=== PATIENT | female | born 1995 | race Caucasian/White ===

== ENCOUNTER 2016-03-31 15:01 | Emergency (ER) | payer BC ==
[2016-03-31] MEDS ORDERED: Amoxicillin/Clavulanate TAB* 875 MG PO ONE (17:30)
--- NOTE | 2016-03-31 17:33 | UC ---
Throat Pain/Nasal Sergei HPI - HPI Summary HPI Summary: FACIAL PRESSURE AND NASAL CONGESTION FOR ONE WEEK. FEVER AND COUGH. - History of Current Complaint Chief Complaint: UC Stated Complaint: SORE THROAT,COUGH Time Seen by Provider: 03/31/16 16:48 Hx Obtained From: Patient Hx Last Menstrual Period: 03/17/16 Onset/Duration: Gradual Onset, Lasting Weeks, Still Present Severity: Moderate Cough: Nonproductive Associated Signs & Symptoms: Positive: Sinus Discomfort, Nasal Discharge, Fever - Epiglottits Risk Factors Epiglottis Risk Factors: Negative - Allergies/Home Medications Allergies/Adverse Reactions: Allergies Allergy/AdvReac Type Severity Reaction Status Date / Time No Known Allergies Allergy Verified 03/31/16 16:56 PMH/Surg Hx/FS Hx/Imm Hx Previously Healthy: Yes - Surgical History Surgical History: None - Family History Known Family History: Negative: Respiratory Disease - Social History Occupation: Student Lives: Alone Alcohol Use: None Substance Use Type: None Smoking Status (MU): Never Smoked Tobacco Review of Systems Constitutional: Fever, Chills, Fatigue Skin: Negative Eyes: Negative ENT: Sore Throat Respiratory: Negative Cardiovascular: Negative Gastrointestinal: Negative Genitourinary: Negative Motor: Negative Neurovascular: Negative Musculoskeletal: Negative Neurological: Negative Psychological: Negative All Other Systems Reviewed And Are Negative: Yes Physical Exam Triage Information Reviewed: Yes Appearance: No Pain Distress, Well-Nourished, Ill-Appearing - MILD Vital Signs: Initial Vital Signs Temp 101.7 F 03/31/16 16:58 Pulse 117 03/31/16 16:58 Resp 16 03/31/16 16:58 BP 111/67 03/31/16 16:58 Pulse Ox 99 03/31/16 16:58 Vital Signs Reviewed: Yes Eye Exam: Normal ENT Exam: Normal ENT: Positive: Normal ENT inspection, Hearing grossly normal, TMs normal Dental Exam: Normal Neck exam: Normal Neck: Positive: Supple, Nontender Respiratory Exam: Normal Respiratory: Positive: Chest non-tender, Lungs clear, Normal breath sounds, No respiratory distress Cardiovascular Exam: Normal Cardiovascular: Positive: RRR, No Murmur Abdominal Exam: Normal Abdomen Description: Positive: Nontender, No Organomegaly Musculoskeletal Exam: Normal Neurological Exam: Normal Psychological Exam: Normal Psychological: Positive: Normal Response To Family Skin Exam: Normal Throat Pain/Nasal Course/Dx - Differential Dx/Diagnosis Differential Diagnosis/HQI/PQRI: Pharyngitis, Sinusitis, Tonsillitis, URI Provider Diagnoses: SINUSITIS Discharge - Discharge Plan Condition: Stable Disposition: HOME Prescriptions: Amoxicillin/Clavulanate TAB* [Augmentin TAB 875*] 875 mg PO BID #20 tab Patient Education Materials: Sinusitis (ED) Forms: *School Release
== END 2016-03-31 17:48 | disposition home or self-care (01) ==
LOC: UCCORT 15:01
DX: J32.9 Chronic sinusitis, unspecified (principal)
CPT/HCPCS: 99202; A9270-GY; G0463

== ENCOUNTER 2017-06-24 16:48 | Emergency (ER) | payer BC ==
[2017-06-24 17:37] VITALS: BP 118/76
--- NOTE | 2017-06-24 17:48 | UC ---
Throat Pain/Nasal Sergei HPI - HPI Summary HPI Summary: 21 yo female with cough x 1 week now with sore throat no documented fever she has had chill no runny nose no n/v/d had flu a few mos ago no CP or SOB - History of Current Complaint Chief Complaint: UCRespiratory Stated Complaint: SORE THROAT, COUGH Time Seen by Provider: 06/24/17 17:30 Hx Obtained From: Patient Hx Last Menstrual Period: 06/13/17 Onset/Duration: Gradual Onset, Lasting Days Severity: Moderate Pain Intensity: 5 Pain Scale Used: 0-10 Numeric Cough: Productive - Allergies/Home Medications Allergies/Adverse Reactions: Allergies Allergy/AdvReac Type Severity Reaction Status Date / Time No Known Allergies Allergy Verified 06/24/17 17:34 Home Medications: Home Medications Bcp 1 tab DAILY 06/24/17 [History Confirmed 06/24/17] PMH/Surg Hx/FS Hx/Imm Hx Previously Healthy: Yes - Surgical History Surgical History: None - Family History Known Family History: Positive: Hypertension Negative: Respiratory Disease - Social History Alcohol Use: None Substance Use Type: None Smoking Status (MU): Never Smoked Tobacco Review of Systems Constitutional: Chills, Fatigue Skin: Negative Eyes: Negative ENT: Sore Throat Respiratory: Cough Cardiovascular: Negative Gastrointestinal: Negative Genitourinary: Negative Motor: Negative Neurovascular: Negative Musculoskeletal: Negative Neurological: Negative Psychological: Negative Is Patient Immunocompromised?: No All Other Systems Reviewed And Are Negative: Yes Physical Exam Triage Information Reviewed: Yes Appearance: Well-Appearing, No Pain Distress, Well-Nourished Vital Signs: Initial Vital Signs Temp 98.2 F 06/24/17 17:35 Pulse 99 06/24/17 17:35 Resp 16 06/24/17 17:35 BP 118/76 06/24/17 17:35 Pulse Ox 100 06/24/17 17:35 Eyes: Positive: Conjunctiva Clear ENT: Positive: Hearing grossly normal, Pharyngeal erythema, TMs normal, Tonsillar swelling. Negative: Nasal congestion, Nasal drainage, Tonsillar exudate, Trismus, Muffled voice, Hoarse voice Neck: Positive: Supple, Tenderness @ - ant cervical nodes Respiratory: Positive: Lungs clear, Normal breath sounds, No respiratory distress, No accessory muscle use Cardiovascular: Positive: RRR, No Murmur Musculoskeletal: Positive: ROM Intact, No Edema Neurological: Positive: Alert Psychological Exam: Normal Skin Exam: Normal Diagnostics - Laboratory Diagnostic Studies Completed/Ordered: strep (-) Throat Pain/Nasal Course/Dx - Differential Dx/Diagnosis Provider Diagnoses: pharyngitis. bronchitis Discharge - Sign-Out/Discharge Documenting (check all that apply): Discharge/Admit/Transfer - Discharge Plan Condition: Stable Disposition: HOME Patient Education Materials: Acute Bronchitis (ED), Pharyngitis (ED) Referrals: Non Staff,Doctor [Primary Care Provider] - Additional Instructions: robitussin or mucinex recheck in 4-5 days if not better - Billing Disposition and Condition Condition: STABLE Disposition: HOME
== END 2017-06-24 18:04 | disposition home or self-care (01) ==
LOC: UCCORT 16:48
DX: J40 Bronchitis, not specified as acute or chronic (principal); J02.9 Acute pharyngitis, unspecified
CPT/HCPCS: 87651; 99212; G0463

== ENCOUNTER 2017-06-30 18:19 | Emergency (ER) | payer BC ==
[2017-06-30 19:24] VITALS: BP 114/72
[2017-06-30] MEDS ORDERED: Albuterol 2.5 MG/3 ML NEB.SOL* (0.083%) INH ONE (20:10)
--- NOTE | 2017-06-30 20:10 | UC ---
General HPI - HPI Summary HPI Summary: PT STATES SEEN HERE ON 06/24/17 AND DX WITH BRONCHITIS. STATES TX WITH AMOXICILLIN. LAST DOSE TOMORROW. RETURNS BECAUSE ONGOING HEADACHE, COUGH, CHEST CONGESTION AND NOW SOME SOB WITH LUNG TIGHTNESS. ALSO NOTES SINUS PRESSURE AND DRAINAGE. NO FEVER OR CHILLS. NO HX ASTHMA. ILL FOR ABOUT 2 WEEKS. - History of Current Complaint Chief Complaint: UCRespiratory Stated Complaint: RECHECK COUGH, SIDHU, FATIGUE Time Seen by Provider: 06/30/17 20:02 Hx Obtained From: Patient Hx Last Menstrual Period: 06/18/17 Onset/Duration: Gradual Onset Timing: Constant Pain Intensity: 8 Associated Signs & Symptoms: Positive: Cough, Headache, SOB. Negative: Chest Pain, Fever, Wheezing - Allergy/Home Medications Allergies/Adverse Reactions: Allergies Allergy/AdvReac Type Severity Reaction Status Date / Time acetaminophen [From NyQuil] Allergy Hives Verified 06/30/17 19:26 dextromethorphan Allergy Hives Verified 06/30/17 19:25 [From NyQuil] doxylamine [From NyQuil] Allergy Hives Verified 06/30/17 19:25 pseudoephedrine [From NyQuil] Allergy Hives Verified 06/30/17 19:25 PMH/Surg Hx/FS Hx/Imm Hx - Additional Past Medical History Additional PMH: SINUSITIS - Surgical History Surgical History: None - Family History Known Family History: Positive: Hypertension Negative: Respiratory Disease - Social History Occupation: Student Lives: Dormitory/Roommates Alcohol Use: None Substance Use Type: None Smoking Status (MU): Never Smoked Tobacco - Immunization History Vaccination Up to Date: Yes Review of Systems Constitutional: Negative Skin: Negative Eyes: Negative ENT: Sinus Congestion, Sinus Pain/Tenderness Respiratory: Shortness Of Breath, Cough Cardiovascular: Negative Gastrointestinal: Negative Genitourinary: Negative Motor: Negative Neurovascular: Negative Musculoskeletal: Negative Neurological: Headache Psychological: Negative Is Patient Immunocompromised?: No All Other Systems Reviewed And Are Negative: Yes Physical Exam Triage Information Reviewed: Yes Appearance: Well-Appearing Vital Signs: Initial Vital Signs Temp 98.6 F 06/30/17 19:16 Pulse 92 06/30/17 19:16 Resp 16 06/30/17 19:16 BP 114/72 06/30/17 19:16 Pulse Ox 100 06/30/17 19:16 Vital Signs Reviewed: Yes Eyes: Positive: Conjunctiva Clear ENT: Positive: Pharynx normal, Nasal congestion, TMs normal, Sinus tenderness. Negative: Nasal drainage Neck: Positive: Supple, Nontender, No Lymphadenopathy Respiratory: Positive: Lungs clear, No respiratory distress, Decreased breath sounds, Other: - npc Cardiovascular: Positive: RRR, No Murmur Abdomen Description: Positive: Nontender, No Organomegaly, Soft Bowel Sounds: Positive: Present Musculoskeletal: Positive: ROM Intact Neurological: Positive: Alert Psychological: Positive: Age Appropriate Behavior Skin Exam: Normal Diagnostics - Radiology No standard instances Xray Interpretation: No Acute Changes Radiology Interpretation Completed By: Radiologist Re-Evaluation - Re-Evaluation Second Eval Re-Evaluation Time: 20:48 Change: Improved - much better aeration. pt notes easier to breathe. Course/Dx - Course Course Of Treatment: cxr=nad. hx / pe c/w sinusitis and bronchitis. with tx with doxycycline and albuterol mdi. pt advised of risk for diarrhea and c-diff from repeat antibiotics. she is willing to accept the risk. - Differential Dx - Multi-Symptom Provider Diagnoses: sinisitis. bronchitis Discharge - Sign-Out/Discharge Documenting (check all that apply): Discharge/Admit/Transfer - Discharge Plan Condition: Improved Disposition: HOME Prescriptions: Albuterol HFA INHALER* [Ventolin HFA Inhaler*] 2 puff INH Q6H #1 mdi DOXYcycline CAP(*) [DOXYcycline 100MG CAP(*)] 100 mg PO BID #20 cap Patient Education Materials: Sinusitis (ED), Acute Bronchitis (ED) Additional Instructions: FOLLOW UP [facility] IN 7 DAYS FOR A RECHECK OR SOONER IF WORSE. TAKE A PROBIOTIC DAILY WHILE ON ANTIBIOTICS. STOP THE AMOXICILLIN. - Billing Disposition and Condition Condition: IMPROVED Disposition: HOME
--- NOTE | 2017-06-30 20:33 | RAD ---
HISTORY: Cough, shortness of breath COMPARISONS: None VIEWS: 4: Frontal dual-energy and lateral views of the chest. FINDINGS: CARDIOMEDIASTINAL SILHOUETTE: The cardiomediastinal silhouette is normal. CRYSTAL: The crystal are normal. PLEURA: The costophrenic angles are sharp. No pleural abnormalities are noted. LUNG PARENCHYMA: The lungs are clear. ABDOMEN: The upper abdomen is clear. There is no subphrenic gas. BONES AND SOFT TISSUES: There is a scoliotic curvature of the spine OTHER: None. IMPRESSION: NO ACTIVE CARDIOPULMONARY DISEASE.
[2017-06-30] MEDS ORDERED: DOXYcycline CAP(*) 100 MG PO ONE (20:50)
== END 2017-06-30 21:04 | disposition home or self-care (01) ==
LOC: UCCORT 18:19
DX: J32.9 Chronic sinusitis, unspecified (principal); J40 Bronchitis, not specified as acute or chronic; Z88.8 Allergy status to other drugs, medicaments and biological substances
CPT/HCPCS: 71046; 99212; A9270-GY; G0463

== ENCOUNTER 2018-02-05 11:24 | Emergency (ER) | payer BC ==
[2018-02-05 12:45] VITALS: BP 113/77
--- NOTE | 2018-02-05 13:04 | UC ---
Complaint Female HPI - HPI Summary HPI Summary: Pt c/o sudden onset urinary symptoms of frequency, murgency an dfeeling that she is not emptying her bladder X 2 days. Pt denies risk of or STI. - History Of Current Complaint Stated Complaint: URINARY Time Seen by Provider: 02/05/18 12:12 Hx Obtained From: Patient Hx Last Menstrual Period: 01/26 ?: No Onset/Duration: Sudden Onset Timing: Intermittent Severity Initially: Mild Severity Currently: Mild Pain Intensity: 5 Character: Not Applicable - urinary urgency and frequency Aggravating Factor(s): Urination Alleviating Factor(s): Nothing Associated Signs And Symptoms: Positive: Negative - Risk Factors Ectopic Risk Factor: Negative Ovarian Torsion Risk Factor: Reproductive Age - Allergies/Home Medications Allergies/Adverse Reactions: Allergies Allergy/AdvReac Type Severity Reaction Status Date / Time acetaminophen [From NyQuil] Allergy Hives Verified 06/30/17 19:26 dextromethorphan Allergy Hives Verified 06/30/17 19:25 [From NyQuil] doxylamine [From NyQuil] Allergy Hives Verified 02/05/18 12:30 pseudoephedrine [From NyQuil] Allergy Hives Verified 06/30/17 19:25 Home Medications: Home Medications Ibuprofen TAB* [Motrin TAB* 400 MG] 400 mg PO ONCE PRN 02/05/18 [History Confirmed 02/05/18] PMH/Surg Hx/FS Hx/Imm Hx Previously Healthy: Yes - Surgical History Surgical History: None - Family History Known Family History: Positive: Hypertension Negative: Respiratory Disease - Social History Occupation: Student Lives: Dormitory/Roommates Alcohol Use: Weekly Alcohol Amount: 4 Substance Use Type: None Smoking Status (MU): Never Smoked Tobacco Have You Smoked in the Last Year: No - Immunization History Vaccination Up to Date: Yes Review of Systems All Other Systems Reviewed And Are Negative: Yes Constitutional: Positive: Negative Skin: Positive: Negative Eyes: Positive: Negative ENT: Positive: Negative Respiratory: Positive: Negative Cardiovascular: Positive: Negative Gastrointestinal: Positive: Negative Genitourinary: Positive: Frequency, Urgency Motor: Positive: Negative Neurovascular: Positive: Negative Musculoskeletal: Positive: Negative Neurological: Positive: Negative Psychological: Positive: Negative Is Patient Immunocompromised?: No Physical Exam Triage Information Reviewed: Yes Appearance: Well-Appearing Vital Signs: Initial Vital Signs Temp 99.5 F 02/05/18 12:36 Pulse 94 02/05/18 12:36 Resp 20 02/05/18 12:36 BP 113/77 02/05/18 12:36 Pulse Ox 100 02/05/18 12:36 Vital Signs Reviewed: Yes Eye Exam: Normal ENT Exam: Normal Dental Exam: Normal Neck exam: Normal Respiratory Exam: Normal Cardiovascular Exam: Normal Abdominal Exam: Normal Abdomen Description: Positive: Nontender Musculoskeletal Exam: Normal Neurological Exam: Normal Psychological Exam: Normal Skin Exam: Normal Complaint Female Dx - Differential Dx/Diagnosis Differential Diagnosis/HQI/PQRI: Urinary Tract Infection Provider Diagnosis: UTI (urinary tract infection) Discharge - Sign-Out/Discharge Documenting (check all that apply): Patient Departure All imaging exams completed and their final reports reviewed: No Studies - Discharge Plan Condition: Stable Disposition: HOME Prescriptions: Nitrofurantoin Monohyd/M-Cryst [Macrobid 100 mg Capsule] 100 mg PO Q12H #10 cap Patient Education Materials: Urinary Tract Infection in Women (ED) Referrals: [facility] [Outside] No Primary Care Phys,NOPCP [Primary Care Provider] - - Billing Disposition and Condition Condition: STABLE Disposition: Home - Attestation Statements Provider Attestation: Per institutional requirements, I have reviewed the chart, however, I was not consulted specifically or made aware of this patient by the midlevel provider. I did not personally evaluate, interact with , or disposition this patient.
--- NOTE | 2018-02-07 08:41 | UC ---
- Progress Note Progress Note: UTI cx negative - can dc macrobid Course/Dx - Diagnoses Provider Diagnoses: UTI (urinary tract infection) Discharge - Sign-Out/Discharge Documenting (check all that apply): Post-Discharge Follow Up All imaging exams completed and their final reports reviewed: No Studies - Discharge Plan Condition: Stable Disposition: HOME Prescriptions: Nitrofurantoin Monohyd/M-Cryst [Macrobid 100 mg Capsule] 100 mg PO Q12H #10 cap Patient Education Materials: Urinary Tract Infection in Women (ED) Referrals: [facility] [Outside] No Primary Care Phys,NOPCP [Primary Care Provider] - - Billing Disposition and Condition Condition: STABLE Disposition: Home
== END 2018-02-05 13:15 | disposition home or self-care (01) ==
LOC: UCCORT 11:24
DX: N39.0 Urinary tract infection, site not specified (principal); Z88.6 Allergy status to analgesic agent; Z88.8 Allergy status to other drugs, medicaments and biological substances
CPT/HCPCS: 81003; 87086; 99212; G0463

== ENCOUNTER 2018-02-09 09:46 | Emergency (ER) | payer BC ==
[2018-02-09 10:35] VITALS: BP 108/70
--- NOTE | 2018-02-09 11:27 | UC ---
Complaint Female HPI - HPI Summary HPI Summary: 22 y/o female presents to the urgent care c/o lower abdominal pain radiating to her lower back since yesterday when she stopped taking Macrobid. Pt reports she was seen here at the clinic on 02/05/2018 and Dx w/ UTI and Rx Macrobid. She was called yesterday and told to stop antibiotic since urine culture returned no growth. She had an episode of diarrhea yesterday and then she developed mild cramping pain. This morning she has decrease appetite and diarrhea resolved. She has been drinking fluids. Today pain is dull 4/10 at times associated w/ gas. Pt denies urinary symptoms, fever, flank pain, vaginal discharge, SOB, chest pain, N/V/D. Hx of STD's. LMP:01/26/2018. - History Of Current Complaint Chief Complaint: UCAbdominalPain Stated Complaint: RECHECK URINARY Time Seen by Provider: 02/09/18 11:25 Hx Obtained From: Patient Hx Last Menstrual Period: 01/26/18 Onset/Duration: Gradual Onset, Lasting Days - 1 day, Still Present Timing: Intermittent Severity Initially: Mild Severity Currently: Mild Pain Intensity: 4 Pain Scale Used: 0-10 Numeric Character: Cramping Aggravating Factor(s): Nothing Alleviating Factor(s): Meds - ibuprofen Associated Signs And Symptoms: Positive: Back Pain - lower back pain. Negative : Fever, Vaginal Bleeding/Discharge, Vaginal Discharge, Genital Swelling, Genital Blisters - Risk Factors Ectopic Risk Factor: Negative Ovarian Torsion Risk Factor: Negative - Allergies/Home Medications Allergies/Adverse Reactions: Allergies Allergy/AdvReac Type Severity Reaction Status Date / Time dextromethorphan Allergy Hives Verified 02/09/18 10:25 [From NyQuil] doxylamine [From NyQuil] Allergy Hives Verified 02/09/18 10:25 pseudoephedrine [From NyQuil] Allergy Hives Verified 02/09/18 10:25 Home Medications: Home Medications Norgestimate-Ethinyl Estradiol [Tri Femynor 0.18/0.215/0.25 mg-35 Mcg] 1 tab PO DAILY 02/09/18 [History Confirmed 02/09/18] PMH/Surg Hx/FS Hx/Imm Hx Previously Healthy: Yes - Pt denies PMHX - Surgical History Surgical History: None - Family History Known Family History: Positive: Hypertension, Diabetes Negative: Respiratory Disease - Social History Occupation: Student Lives: With Family Alcohol Use: Weekly Alcohol Amount: 4 Substance Use Type: None Smoking Status (MU): Never Smoked Tobacco Have You Smoked in the Last Year: No - Immunization History Vaccination Up to Date: Yes Review of Systems All Other Systems Reviewed And Are Negative: Yes Constitutional: Positive: Negative Skin: Positive: Negative Eyes: Positive: Negative ENT: Positive: Negative Respiratory: Positive: Negative Cardiovascular: Positive: Negative Gastrointestinal: Positive: Abdominal Pain - lower abdominal pain w/ gas, Diarrhea - 1 episode which resolved Genitourinary: Positive: Negative Motor: Positive: Negative Neurovascular: Positive: Negative Musculoskeletal: Positive: Negative Neurological: Positive: Negative Psychological: Positive: Negative Is Patient Immunocompromised?: No Physical Exam - Summary Physical Exam Summary: Vital Signs Reviewed: Yes General:Patient is a well developed and nourished female who is sitting comfortable in the examining table. Patient is not in any acute respiratory distress. Eyes: Positive: Conjunctiva Clear - PERRLA, EOMI, fundi grossly normal ENT: Positive: Normal ENT inspection, Hearing grossly normal, Pharynx normal, TMs normal Neck: Positive: Supple, Nontender, No Lymphadenopathy Respiratory: Positive: Chest non-tender, Lungs clear, Normal breath sounds, No respiratory distress Cardiovascular: Positive: RRR,S1 and S2 present, No Murmur, Pulses Normal, Brisk Capillary Refill Abdomen Description: Positive: Nontender, Abd: Flat with no distention. No surface trauma, scars, incisions. hyperactive bowel sounds present in all four quadrants. No tenderness, guarding, rigidity to palpation. No masses palpated, no pulsation in epigastric area. No organomegaly. Negative [place] signs. No periumbilical tenderness. No rebound in the lower quadrants. NT over [place] point. Good femoral pulses bilaterally. No hernia noted. No CVAT bilaterally Musculoskeletal: Positive: Strength Intact, ROM Intact, No Edema,FROM in all major joints, no edema, no cyanosis or clubbing. Neuro: Alert and oriented x 3. No acute neurological deficits. Speech is normal. Psychological: WNL Skin: Dry and warm Triage Information Reviewed: Yes Vital Signs: Initial Vital Signs Temp 97.9 F 02/09/18 10:27 Pulse 83 02/09/18 10:27 Resp 18 02/09/18 10:27 BP 108/70 02/09/18 10:27 Pulse Ox 100 02/09/18 10:27 Complaint Female Dx - Course Course Of Treatment: 22 y/o female presents to the urgent care c/o lower abdominal pain radiating to her lower back since yesterday when she stopped taking Macrobid. Pt reports she was seen here at the clinic on 02/05/2018 and Dx w/ UTI and Rx Macrobid. She was called yesterday and told to stop antibiotic since urine culture returned no growth. She had an episode of diarrhea yesterday and then she developed mild cramping pain. This morning she has decrease appetite and diarrhea resolved. She has been drinking fluids. Today pain is dull 4/10 at times associated w/ gas. Pt denies urinary symptoms, fever , flank pain, vaginal discharge, SOB, chest pain, N/V/D. Hx of STD's. LMP:01/26.Hx obtained. PE:WNL. UA=negative. Pt's symptoms may be possible due to gas and bloating since positive hyperactive bowel sounds present. Pt advised to take yogurt w/ probiotics or Culturelle to alleviate symptoms. D/c instructions explained. Pt understood and agreed w/ plan of care. - Differential Dx/Diagnosis Differential Diagnosis/HQI/PQRI: Cervicitis, Renal Colic, Sexually Transmitted Disease, Ureteral Stone, Urinary Tract Infection, Other Provider Diagnosis: Gas bloat syndrome, Lower abdominal pain of unknown etiology Discharge - Sign-Out/Discharge Documenting (check all that apply): Patient Departure - D/c home All imaging exams completed and their final reports reviewed: No Studies - Discharge Plan Condition: Stable Disposition: HOME Patient Education Materials: Gas and Bloating (ED), Abdominal Pain (ED) Referrals: [facility] [place] [facility] [Outside] Additional Instructions: 1- Please continue Ibuprofen PO after meals. Drink hot water or hot tea to relieve gas. Limiting dietary ingestion of known gas-producing foods such as cabbage, onions, broccoli, brussel sprouts, wheat, and potatoes can help reduce symptoms. Also avoid drinking carbonated beverages, and gulping food or liquids. Please take yogurt w/ probiotics or culturelle since probably the antibiotic you stop upset your GI eber. 2 - If symptoms worsen and you develop severe abdominal pain please go immediately to the ER or your PCP for further evaluation and treatment. 3- UA was completely negative - Billing Disposition and Condition Condition: STABLE Disposition: Home
== END 2018-02-09 11:47 | disposition home or self-care (01) ==
LOC: UCCORT 09:46
DX: R14.0 Abdominal distension (gaseous) (principal); R10.30 Lower abdominal pain, unspecified; Z88.8 Allergy status to other drugs, medicaments and biological substances
CPT/HCPCS: 81003; 99211; G0463